=== PATIENT | male | born 1940 | race Two or more races ===

== ENCOUNTER 2022-05-26 22:47 | Emergency (ER) | payer OTHER ==
[~2022-05-26] VITALS: Ht 170.2 cm; Wt 99.8 kg
[~2022-05-26 22:47] MED LIST: GLUCOPHAGE XR500 MG PO; JANUVIA100 MG PO; VERELAN180 MG PO; ZESTRIL40 MG PO
[2022-05-26] MEDS ORDERED: LEVOFLOXACIN750 MG PO (23:14)
[2022-05-26] MEDS ORDERED: HYDROCHLOROTHIA25 MG PO (23:14)
[2022-05-26] MEDS ORDERED: FINASTERIDE5 MG PO (23:15)
[2022-05-26] MEDS ORDERED: GLIMEPIRIDE2 M1 PO (23:15)
[2022-05-26] MEDS ORDERED: VERAPAMIL ER180 MG PO (23:16)
[2022-05-26] MEDS ORDERED: SIMVASTATIN10 MG PO (23:16)
[2022-05-26] MEDS ORDERED: FENOFIBRATE160 MG PO (23:16)
[2022-05-26] MEDS ORDERED: TAMSULOSIN HCL0.4 MG PO (23:17)
[2022-05-26] MEDS ORDERED: ALLER-TEC10 MG PO (23:17)
[2022-05-26] MEDS ORDERED: SERTRALINE HCL50 MG PO (23:17)
[2022-05-26] MEDS ORDERED: AZELASTINE137 MCG/0. (23:19)
[2022-05-27] MEDS ORDERED: ONDANSETRON ODT4 MG PO (07:32)
[2022-05-27] MEDS ORDERED: PHAZYME250 MG PO (07:32)
[2022-05-27] MEDS ORDERED: INTESTINEX680 M1 PO (07:32)
[2022-05-27] MEDS ORDERED: PEPCID40 MG PO (07:34)
== END 2022-05-27 07:49 ==
LOC: ER 22:47
DX: K59.00 Constipation, unspecified (principal); R14.0 Abdominal distension (gaseous)

== ENCOUNTER 2022-06-07 08:10 | Inpatient (IN) | payer OTHER ==
[~2022-06-07] VITALS: Ht 170.2 cm; Wt 99.8 kg
[~2022-06-07 08:10] MED LIST changes: +ALLER-TEC10 MG PO; +AZELASTINE137 MCG/0.; +FENOFIBRATE160 MG PO; +FINASTERIDE5 MG PO; +GLIMEPIRIDE2 M1 PO; +HYDROCHLOROTHIA25 MG PO; +INTESTINEX680 M1 PO; +LEVOFLOXACIN750 MG PO; +ONDANSETRON ODT4 MG PO; +PEPCID40 MG PO; +PHAZYME250 MG PO; +SERTRALINE HCL50 MG PO; +SIMVASTATIN10 MG PO; +TAMSULOSIN HCL0.4 MG PO; +VERAPAMIL ER180 MG PO
--- NOTE | 2022-06-07 08:43 | NUR ---
SE RECIBE PTE ALERTA ORIENTADO X3.PTE REFIERE TENER DOLOR EN EL CUADRANTE INFERIOR DERECHO CATRACHITA DESDE HOY EN LA MADRUGADA.SE NIKA S/V Y SE UBICA.
--- NOTE | 2022-06-07 10:26 | NUR ---
PACIENTE ALERTA Y ORIENTADO POR KASH. SE ORIENTA DE TRATAMIENTO KINZA ORDEN MEDICA. REFIERE ENTENDER. SE NIKA MUESTRAS Y SE ADMINISTRA MEDICAMENTO CON MEDIDAS ASEPTICAS CORRESPONDIENTES. EN ESPERA DE SOMO ABD.
--- NOTE | 2022-06-07 13:30 | NUR ---
MIS S CUNHA RN ORIENTA DE MEDICAMENTO IV, PACIENTE REFIERE ENTENDER. ESTA CANALIZA Y ADMINISTRA MEDICAMENTO CON MEDIDAS ASEPTICAS CORRESPONDIENTES.
--- NOTE | 2022-06-07 15:35 | NUR ---
SE REICBE PTE ALERTA Y ORIENTADO X3 SE LE EDUCA SOBRE PROCESO A REALIZARSE EN EL AREA EL MISMO REFIERE ENTENDER, SE RECIBE CON BARANDAS ELEVADAS. CON UN #22 EN MANO IZQUIERDA. PTE PENDIENTE A SONOGRAFIA.
[2022-06-08] MEDS ORDERED: LEVOTHYROXINE25 MC1 (08:09)
[2022-06-08] MEDS ORDERED: OMEPRAZOLE40 MG (08:09)
[2022-06-08] MEDS ORDERED: KETOROLAC TROMET5 ML (08:10)
[2022-06-08] MEDS ORDERED: BRIMONIDINE TART5 ML (08:10)
== END 2022-06-13 14:14 | disposition home or self-care (01) | DRG 419 ==
LOC: ER 08:10 → MEDI 21:17
PROVIDERS: Surgery; ADMIT Internal Medicine; ATTEND Internal Medicine
PROC: BW40ZZZ Ultrasonography of Abdomen (ICD-10-PCS; 2022-06-07)
PROC: 0FJD8ZZ Inspection of Pancreatic Duct, Via Natural or Artificial Opening Endoscopic (ICD-10-PCS; 2022-06-08)
PROC: 0WQF4ZZ Repair Abdominal Wall, Percutaneous Endoscopic Approach (ICD-10-PCS; 2022-06-11)
PROC: 0FT44ZZ Resection of Gallbladder, Percutaneous Endoscopic Approach (ICD-10-PCS; principal; 2022-06-11 13:15)
PROC: B54NZZZ Ultrasonography of Left Upper Extremity Veins (ICD-10-PCS; 2022-06-12)
DX: K80.12 Calculus of gallbladder with acute and chronic cholecystitis without obstruction (principal); K59.00 Constipation, unspecified; R14.0 Abdominal distension (gaseous); E11.9 Type 2 diabetes mellitus without complications; I10 Essential (primary) hypertension; E03.9 Hypothyroidism, unspecified